=== PATIENT | female | born 1985 | race Caucasian/White ===

== ENCOUNTER 2018-09-22 17:15 | Emergency (ER) | payer MEDICAID ==
[~2018-09-22] VITALS: Ht 162.6 cm; Wt 84.1 kg
[2018-09-22 17:28] VITALS: Ht 162.6 cm; Wt 84.1 kg
[2018-09-22 17:56] LABS: BASOPHILS 0.1 % (0-2); HEMATOCRIT 40.7 % (36.0-48.0); IMMATURE GRANULOCYTES 0.2 % (0-5); LYMPHOCYTES 31.1 % (15-50); MCH 31.7 pg (26.0-34.0); MCHC 34.4 g/dL (31.0-37.0); MCV 92.1 fL (80.0-100.0); MEAN PLATELET VOLUME 11.2 fL (7.4-10.4); MONOCYTES 5.6 % (2-11); PLATELET COUNT 198 10x3/uL (130-400); RBC 4.42 10x6/uL (4.00-5.40); RDW 13.1 % (11.5-14.5); WBC 9.3 10x3/uL (4.8-10.8)
[2018-09-22 18:36] LABS: ALBUMIN 3.5 g/dL (3.4-5.0); ALKALINE PHOSPHATASE 77 U/L (46-116); ALT (SGPT) 21 U/L (10-68); BILIRUBIN - TOTAL 0.18 mg/dL (0.2-1.3); CALC OSMOLALITY 281 mosm/kg (275-300); CARBON DIOXIDE 23.9 mmol/L (21.0-32.0); CHLORIDE - SERUM 105 mmol/L (98-107); CREATININE - SERUM 0.7 mg/dL (0.6-1.3); GLUCOSE 140 mg/dL (74-106); POTASSIUM - SERUM 3.6 mmol/L (3.5-5.1); PROTEIN - SERUM 6.8 g/dL (6.4-8.2); SODIUM 140 mmol/L (136-145); UREA NITROGEN 16 mg/dL (7-18); eGFR NON AFRICAN AMERICAN > 90 mL/min (90-120)
[2018-09-22] MEDS ORDERED: NAPROSYN500 MG PO (19:34)
[2018-09-22] MEDS ORDERED: CYCLOBENZAPRINE10 MG PO (19:34)
[2018-09-22 20:06] VITALS: BP 130/85
== END 2018-09-22 19:58 | disposition home or self-care (01) ==
LOC: D.ER 17:15
PROVIDERS: Family Medicine
DX: G44.209 Tension-type headache, unspecified, not intractable (principal); F17.200 Nicotine dependence, unspecified, uncomplicated

== ENCOUNTER 2019-01-14 09:02 | Emergency (ER) | payer BC, MEDICAID ==
[~2019-01-14] VITALS: Ht 162.6 cm; Wt 90.9 kg
[~2019-01-14 09:02] MED LIST: CYCLOBENZAPRINE10 MG PO; NAPROSYN500 MG PO
[2019-01-14 09:07] VITALS: Ht 162.6 cm; Wt 90.9 kg
[2019-01-14] MEDS ORDERED: XANAX0.25 MG PO (09:09)
[2019-01-14 09:52] LABS: BASOPHILS 0.1 % (0-2); EOSINOPHILS 0.9 % (0-7); HEMOGLOBIN 14.9 g/dL (12-16); IMMATURE GRANULOCYTES 0.1 % (0-5); MCH 31.6 pg (26.0-34.0); MCHC 34.7 g/dL (31.0-37.0); MCV 91.1 fL (80.0-100.0); MEAN PLATELET VOLUME 10.8 fL (7.4-10.4); NEUTROPHILS 64.9 % (40-80); PLATELET COUNT 189 10x3/uL (130-400); RBC 4.72 10x6/uL (4.00-5.40); RDW 12.7 % (11.5-14.5); WBC 7.9 10x3/uL (4.8-10.8)
[2019-01-14 10:14] LABS: ALBUMIN 3.6 g/dL (3.4-5.0); ALKALINE PHOSPHATASE 94 U/L (46-116); ALT (SGPT) 32 U/L (10-68); BILIRUBIN - TOTAL 0.37 mg/dL (0.2-1.3); CALC OSMOLALITY 278 mosm/kg (275-300); CALCIUM 8.9 mg/dL (8.5-10.1); CARBON DIOXIDE 24.6 mmol/L (21.0-32.0); CHLORIDE - SERUM 104 mmol/L (98-107); CREATININE - SERUM 0.8 mg/dL (0.6-1.3); GLUCOSE 124 mg/dL (74-106); POTASSIUM - SERUM 3.9 mmol/L (3.5-5.1); PROTEIN - SERUM 7.5 g/dL (6.4-8.2); SODIUM 140 mmol/L (136-145); UREA NITROGEN 11 mg/dL (7-18); eGFR NON AFRICAN AMERICAN 88 mL/min (90-120)
[2019-01-14 10:18] LABS: C-REACTIVE PROTEIN 0.7 mg/dL (0.0-0.9)
[2019-01-14 11:05] LABS: ERYTHROCYTE SEDIMENTATION RATE 4 mm/hr (0-20)
[2019-01-14 11:08] VITALS: BP 118/85
[2019-01-14] MEDS ORDERED: MEDROL DOSE PACK4 MG PO (11:17)
[2019-01-14] MEDS ORDERED: BENADRYL50 MG PO (11:17)
== END 2019-01-14 11:36 | disposition home or self-care (01) ==
LOC: D.ER 09:02
PROVIDERS: Family Medicine
DX: T78.40XA Allergy, unspecified, initial encounter (principal); X58.XXXA Exposure to other specified factors, initial encounter; F17.200 Nicotine dependence, unspecified, uncomplicated

== ENCOUNTER 2019-08-16 06:36 | Emergency (ER) | payer SELFPAY ==
[~2019-08-16] VITALS: Ht 162.6 cm; Wt 93.2 kg
[~2019-08-16 06:36] MED LIST changes: +BENADRYL50 MG PO; +MEDROL DOSE PACK4 MG PO; +XANAX0.25 MG PO
[2019-08-16 06:44] VITALS: BP 130/93; Ht 162.6 cm; Wt 93.2 kg
[2019-08-16 07:24] LABS: BASOPHILS 0.1 % (0-2); EOSINOPHILS 0.9 % (0-7); HEMATOCRIT 42.7 % (36.0-48.0); IMMATURE GRANULOCYTES 0.3 % (0-5); LYMPHOCYTES 30.4 % (15-50); MCH 31.3 pg (26.0-34.0); MCHC 35.1 g/dL (31.0-37.0); MEAN PLATELET VOLUME 11.3 fL (7.4-10.4); MONOCYTES 6.9 % (2-11); NEUTROPHILS 61.4 % (40-80); PLATELET COUNT 194 10x3/uL (130-400); RDW 13.2 % (11.5-14.5); WBC 9.8 10x3/uL (4.8-10.8)
[2019-08-16 07:25] LABS: APPEARANCE CLEAR (CLEAR); BILIRUBIN NEGATIVE (NEGATIVE); COLOR YELLOW (YELLOW); GLUCOSE NEGATIVE (NEGATIVE); KETONE NEGATIVE (NEGATIVE); NITRITE NEGATIVE (NEGATIVE); PROTEIN NEGATIVE (NEGATIVE); UROBILINOGEN NORMAL (NORMAL)
[2019-08-16 07:37] LABS: ALBUMIN 3.7 g/dL (3.4-5.0); ALKALINE PHOSPHATASE 101 U/L (46-116); ALT (SGPT) 32 U/L (10-68); AMYLASE - SERUM 63 U/L (25-115); BILIRUBIN - TOTAL 0.26 mg/dL (0.2-1.3); CALC OSMOLALITY 275 mosm/kg (275-300); CALCIUM 9.2 mg/dL (8.5-10.1); CHLORIDE - SERUM 103 mmol/L (98-107); CREATININE - SERUM 0.9 mg/dL (0.6-1.3); GLUCOSE 140 mg/dL (74-106); LIPASE 127 U/L (73-393); POTASSIUM - SERUM 4.2 mmol/L (3.5-5.1); PROTEIN - SERUM 7.5 g/dL (6.4-8.2); SODIUM 137 mmol/L (136-145); UREA NITROGEN 13 mg/dL (7-18); eGFR NON AFRICAN AMERICAN 76 mL/min (90-120)
[2019-08-16] MEDS ORDERED: PREDNISONE20 MG PO (09:40)
[2019-08-16] MEDS ORDERED: ZOFRAN ODT4 MG/UDTAB PO (09:40)
== END 2019-08-16 11:15 | disposition home or self-care (01) ==
LOC: D.ER 06:36
PROVIDERS: Emergency Medicine
DX: A08.4 Viral intestinal infection, unspecified (principal)

== ENCOUNTER 2019-09-15 09:31 | Emergency (ER) | payer SELFPAY ==
[~2019-09-15] VITALS: Ht 162.6 cm; Wt 90.9 kg
[~2019-09-15 09:31] MED LIST changes: +PREDNISONE20 MG PO; +ZOFRAN ODT4 MG/UDTAB PO
[2019-09-15 09:38] VITALS: Ht 162.6 cm; Wt 90.9 kg
[2019-09-15] MEDS ORDERED: NAPROSYN500 MG PO (11:17)
[2019-09-15] MEDS ORDERED: NEURONTIN 300300 MG PO (11:17)
[2019-09-15 11:40] VITALS: BP 121/79
== END 2019-09-15 11:41 | disposition home or self-care (01) ==
LOC: D.ER 09:31
DX: M54.5 Low back pain (principal); M79.662 Pain in left lower leg

== ENCOUNTER 2019-11-28 13:58 | Emergency (ER) | payer OTHER ==
[~2019-11-28] VITALS: Ht 162.6 cm; Wt 94.1 kg
[~2019-11-28 13:58] MED LIST changes: +NEURONTIN 300300 MG PO
[2019-11-28 14:35] VITALS: Ht 162.6 cm; Wt 94.1 kg
[2019-11-28] MEDS ORDERED: MUCINEX DM ER1 EAC1 PO (15:28)
[2019-11-28] MEDS ORDERED: ZPAK PO (15:28)
[2019-11-28 16:14] VITALS: BP 134/86
== END 2019-11-28 16:14 | disposition home or self-care (01) ==
LOC: D.ER 13:58
DX: J06.9 Acute upper respiratory infection, unspecified (principal); J40 Bronchitis, not specified as acute or chronic